=== PATIENT | male | born 1980 | race Caucasian/White ===

== ENCOUNTER 2024-11-24 20:19 | Emergency (ER) | payer SELFPAY ==
[2024-11-24 20:23] VITALS: BP 136/85
[2024-11-24 20:55] VITALS: BMI 24.9
[2024-11-24 23:01] VITALS: BP 104/55
[2024-11-25] MEDS: CLEOCIN 450 MG PO (00:59)
--- NOTE | 2024-11-25 01:21 | ED.GENMED ---
History of Present Illness
General
Chief Complaint: Skin Problem
Time Seen by Provider: 11/25/24 00:14
History of Present Illness
History of Present Illness:
44-year-old male without significant past medical history presenting for abscess to the umbilical region. Patient reports it has been there for the past week. He went to urgent care a week ago, notes that the area was incised and he was started on
Keflex. Reports that the pain is worsening with increased swelling and redness. Denies fever. Denies history of abscesses in the past. Denies any cuts or wounds to the area or any shaving. Denies additional acute medical complaints
Phy Exam
Physical Exam
Physical Exam:
General: Well-appearing, no clinical signs of dehydration, nontoxic and in no acute distress
HEENT: protecting airway
Neck: appears supple
CV: Normal heart rate
Resp: No accessory muscle use, no increased work of breathing
Abd: Abscess to the inferior region of the umbilicus with surrounding induration and erythema. Fluctuance on palpation with active drainage.
Extremities: No deformities, no swelling, no erythema, pulses and sensation intact
Neuro: alert, no focal neurologic deficit
: deferred
Rectal: deferred
Psych: Normal affect
Skin: Intact
Course
Orders/Labs/Results
Orders:
Orders
11/25/24 00:54
Clindamycin HCl [Cleocin] 450 mg PO NOW STA
Vital Signs
Initial and Last Documented VS:
Initial Vital Signs
Temp Pulse Resp BP Pulse Ox
97.5 F 63 18 136/85 99
11/24/24 20:23 11/24/24 20:23 11/24/24 20:23 11/24/24 20:23 11/24/24 20:23
Last Documented Vital Signs
Temp Pulse Resp BP Pulse Ox
97.7 F 52 18 104/55 98
11/24/24 23:01 11/24/24 23:01 11/24/24 23:01 11/24/24 23:01 11/24/24 23:01
Procedures
Incision/Drainage/Joint Aspiration
Abdomen:
Anethesia: 1% Lidocaine
Preparation: cleaned with alcohol wipe
Type of procedure: incise
Nature of site: abscess
Description of abscess: greater than 3cm
Loculations broken up: Yes
How much fluid was obtained?: large amount
Fluid description: purulent
Treatment: left open for drainage
MDM/Problems Addressed
MDM/Problems Addressed:
44-year-old male without significant past medical history presenting for concern of abscess. Vital signs are normal.
On exam patient is resting comfortably, no acute distress, he does have an obvious abscess to the inferior umbilical region. However appears superficial and etiology without concern for deep space collection. There is surrounding induration and
cellulitis. The abscessed area is actively draining. The area was further incised to aid with drainage. Please see procedure note. Significant amount of purulent fluid obtained. At this time feel stable for discharge with continued outpatient
management. Given failure of improvement on Keflex, will start on clindamycin for potential MRSA. Patient hemodynamically stable, feel stable for discharge. Return precautions discussed and patient verbalized understanding
*Critical Care Note
Total Time (30-74mins, 75-104mins- exclusive of procedures): Not Applicable
ED Attending Note
-
Portions of this chart may have been created with voice recognition software.� Occasional wrong word or��sound alike� substitutions may have occurred due to the inherent limitations of voice recognition software.
Discharge Plan
Departure
Patient Disposition: Home (Routine Discharge)
Date of Disposition: 11/25/24
Time of Disposition: 01:21
Patient with high blood pressure during this ER visit?: No
Condition: Good
Discharge Problem:
Abscess of umbilicus
Instructions: Cellulitis (Skin Infection), Adult (DC), Abscess incision and drainage - ED discharge instructions
Prescriptions:
New
clindamycin HCl [Cleocin HCl] 150 mg capsule
450 mg PO TID 7 Days Qty: 63 0RF
Referrals:
NONE,* [Family Provider] -
Activity Restrictions/Additional Instructions:
You were seen in the emergency department for an abscess
Your abscess was drained and you were started on clindamycin. Please take as directed. Return with increased swelling or redness to the area
Please follow-up closely with your primary care physician for wound reassessment in 2 to 3 days.
Return to the emergency department for any worsening of your symptoms, or any development of chest pain, difficulty breathing, abdominal pain with persistent vomiting and inability to tolerate food or liquid by mouth (concern for dehydration),
weakness, headache or confusion, fever greater than 100.4, or any additional symptoms that are concerning to you.
Thank you for choosing [facility].
Interventions
Interventions:
*Risk Screen - Suicide Last Done: 11/24/24 20:23
*General Assessment Last Done: 11/24/24 20:23
*Neglect/Abuse Screening Last Done: 11/24/24 20:23
*ED COVID-19 Vaccine History Last Done: 11/24/24 20:23
ED-Skin Assessment Last Done: 11/24/24 20:54
Discharge Date and Time
Print Language: NEPALI
[2024-11-25 01:52] VITALS: BP 104/55
== END 2024-11-25 01:53 | disposition home or self-care (01) ==
LOC: EMR 20:19
PROVIDERS: EMERGENCY PHYSICIAN Student in an Organized Health Care Education/Training Program
DX: L02.216 Cutaneous abscess of umbilicus (principal)
CPT/HCPCS: 10060; 99283